=== PATIENT | male | born 1990 | race Caucasian/White ===

== ENCOUNTER 2024-07-13 13:52 | Emergency (ER) | payer MEDICAID, OTHER ==
[~2024-07-13] VITALS: Ht 180.3 cm; Wt 86.2 kg
[2024-07-13 13:53] VITALS: BP 123/70; PULSE 120; RESP 19; TEMP 98; O2SAT 99
== END 2024-07-13 13:58 | disposition left against medical advice (07) ==
LOC: MED 13:52
DX: T40.604A Poisoning by unspecified narcotics, undetermined, initial encounter (principal); Y92.89 Other specified places as the place of occurrence of the external cause
CPT/HCPCS: 99283

== ENCOUNTER 2024-08-09 19:05 | Emergency (ER) | payer SELFPAY ==
[~2024-08-09] VITALS: Ht 180.3 cm; Wt 86.2 kg
[2024-08-09 20:14] VITALS: BP 137/90; PULSE 108; RESP 18; TEMP 99.1; O2SAT 100
[2024-08-09] MEDS ORDERED: LIDOCAINE MPF 1% 5 ML ONE (21:07)
[2024-08-09] MEDS ORDERED: cefTRIAXone 500 MG VIAL ONE (21:07)
[2024-08-09] MEDS: cefTRIAXone 500 MG in LIDOCAINE MPF 1% 1 ML IM ONE (21:18)
[2024-08-09] MEDS ORDERED: DOXY-22 PO (21:26)
== END 2024-08-09 21:50 | disposition home or self-care (01) ==
LOC: MED 19:05
DX: Z11.3 Encounter for screening for infections with a predominantly sexual mode of transmission (principal); R03.0 Elevated blood-pressure reading, without diagnosis of hypertension; Z79.899 Other long term (current) drug therapy
CPT/HCPCS: 87491; 96372; 99283; J0696; J2003